=== PATIENT | female | born 1995 | race Two or more races ===

== ENCOUNTER 2019-09-07 01:22 | Inpatient (IN) | payer OTHER ==
[2019-09-07] MEDS ORDERED: ELECTROLYTE-148 SOLN 500 ML IV ONE ×2 (03:00→04:00)
[2019-09-07 03:26] VITALS: BMI 24.5
[2019-09-07 03:28] LABS: BASO % 0.2 % (0-2.0); EOS % 0.5 % (0-4.5); HEMATOCRIT 33.9 % (32.4-45.2); HEMOGLOBIN 11.5 GM/dL (10.7-15.3); LYMPH % 21.8 % (8-40); MCH 29.2 pg (25.7-33.7); MEAN CELL VOLUME 85.9 fl (80-96); MEAN PLT VOLUME 9.9 fl (7.5-11.1); MONO % 12.2 % (3.8-10.2); NEUT % 65.3 % (42.8-82.8); PLATELET COUNT 194 K/MM3 (134-434); RBC 3.95 M/mm3 (3.60-5.2)
[2019-09-07 03:40] LABS: INR 0.87 (0.83-1.09); PROTHROMBIN TIME (PATIENT) 10.3 SEC (9.7-13.0)
[2019-09-07 03:46] LABS: BLOOD UREA NITROGEN 7.1 mg/dL (7-18); CALCIUM 9.1 mg/dL (8.5-10.1); CREATININE 0.4 mg/dL (0.55-1.3); POTASSIUM 4.2 mmol/L (3.5-5.1)
[2019-09-07] MEDS ORDERED: FENTANYL/BUPIVACAINE/NS/PF - PCEA - 50 ML DISP.SYRIN EP ONE ×4 (03:58→16:28)
[2019-09-07] MEDS ORDERED: LIDO 2%/EPI 1:200000 PRESRVFRE (20 ML SDVIAL) ONE ×2 (04:02→22:54)
[2019-09-07] MEDS ORDERED: NALOXONE HCL 0.4 MG/ML VIAL IVPUSH PRN (04:33)
[2019-09-07] MEDS ORDERED: FENTANYL/BUPIVACAINE/NS/PF - PCEA - 50 ML DISP.SYRIN EP SCH (04:45)
[2019-09-07] MEDS: FENTANYL/BUPIVACAINE/NS/PF - PCEA - 50 ML DISP.SYRIN EP SCH (05:44)
[2019-09-07] MEDS ORDERED: OXYTOCIN 30 UNITS in 0.9% NS 30 UNIT/500 ML INFUS.BAG IVPB ONE (13:12)
[2019-09-07] MEDS ORDERED: OXYTOCIN 30 UNITS in 0.9% NS 30 UNIT/500 ML INFUS.BAG IVPB SCH (13:15)
--- NOTE | 2019-09-07 13:42 | HP ---
Past Medical History - Primary Care Physician PCP:: Shane Clarke - Admission Chief Complaint: 23yo P0 with at EGA 39w4d admitted with SROM and spontaneous labor. History of Present Illness: Pt with uncomplicated PNC. She was a late PNC tranfer to [facility] from [facility], and part of PNC at [id number] in [place]. Prior records show essentially normal values, negative 2-hr GCT, normal US 's. She presented with SROM at 1am and was noted to be is spontaneous labor and 2 cm dilated at 2:30 pm. The patient was given an epidural for pain mgt and progressed to 5 cm dilation by 8:30 am. At 13:03 her cervical dilation is still 5 cm. The tracing has been consistently Category I. History Source: Patient, Medical Record Limitations to Obtaining History: No Limitations - Past Medical History CARPET BINDER: No: Alzheimer's, CVA, Dementia, Migraine, Multiple Sclerosis, Peripheral Neuropathy, Parkinson's, Seizure, Syncope, TIA, Vertigo, Other Cardiovascular: No: AFIB, Aneurysm, Aortic Insufficiency, Aortic Stenosis, CAD, CHF, Deep Vein Thrombosis, HTN, Hyperlipdemia, NC, Mitral Insufficiency, Mitral Stenosis, Murmur, Pulmonary Hypertension, Other Pulmonary: No: Asthma, Bronchitis, Cancer, COPD, O2 Dependent, Pneumonia, Previously Intubated, Pulmonary Embolus, Pulmonary Fibrosis, Sleep Apnea, Other Gastrointestinal: No: Ascites, Cancer, Constipation, Crohn's Disease, Diverticulitis, Diverticulosis, Esophageal Varices, Gastritis, GERD, GI Bleed, Hemorrhoids, Hiatal Hernia, Inflamatory Bowel Disease, Irritable Bowel Disease, Pancreatitis, Peptic Ulcer Disease, Ulcerative Colitis, Other Hepatobiliary: No: Cirrhosis, Cholelithiasis, Cholecystitis, Choledocholithiasis , Hepatitis A, Hepatitis B, Hepatitis C, Other Renal/: No: Renal Failure, Renal Inusuff, BPH, Cancer, Hematuria, Hemodialysis , Neurogenic Bladder, Renal Calculi, UTI, Other Reproductive: No: Ectopic , Endometriosis, Fibroids, PID, Polycystic Ovary Syndrome, Postmenopausal, Other ...: 1 ...Para: 0 ...Term: 0 ...: 0 ...Spon : 0 ...Induced : 0 ...Multiple Gestation: 0 ...LMP: 12/05/18 ... Weeks Gestation by Dates: 39.4 ...EDC by Dates: 09/10/19 Heme/Onc: No: Anemia, B12 Deficiency, Bleeding Disorder, Cancer, Current Chemotherapy, Current Radiation Therapy, Hemochromatosis, Hypercoaguable State, Myeloproliferative Synd, Sickle Cell Disease, Sickle Cell Trait, Thrombocytopenia, Other Infectious Disease: No: AIDS, C-Diff, Herpes Zoster, HIV, MRSA, STD's, Tuberculosis, VREF, Other Psych: No: Addictions, Anxiety, Bipolar, Depression, Panic, Psychosis, Schizophrenia, Other Musculoskeletal: No: Bursitis, Chronic low back pain, Hemiparesis, Hemiplegia, Osteoarthritis, Paraplegia, Other Rheumatology: No: Fibromyalgia, Gout, Lupus, Rheumatoid Arthritis, Sarcoidosis, Vasculitis, Other Endocrine: No: Keyshawn's Disease, Allan's Disease, Diabetes Insipidus, Diabetes Mellitus, Hyperparathyroidism, Hyperthyroidism, Hypothyroidism, Osteopenia, SIADH, Other Dermatology: No: Basal Cell, Cellulitis, Eczema, Melanoma, Psoriasis, Squamous Cell, Other - Past Surgical History Past Surgical History: Yes: None Hx Myomectomy: No Hx Transabdominal Cerclage: No - Smoking History Smoking history: Never smoked Have you smoked in the past 12 months: No - Alcohol/Substance Use Hx Alcohol Use: No History of Substance Use: reports: None - Social History Usual Living Arrangement: Yes: With Spouse, With Parent Do you think of yourself as: Straight/Heterosexual ADL: Independent History of Recent Travel: No Home Medications - Allergies Allergies/Adverse Reactions: Allergies Allergy/AdvReac Type Severity Reaction Status Date / Time No Known Allergies Allergy Verified 09/07/19 03:32 - Home Medications Home Medications: Ambulatory Orders RX: Vitamins (Sjr) - 1 tab PO DAILY 09/07/19 Family Medical History Family History: Unremarkable Review of Systems - Review of Systems Constitutional: reports: No Symptoms Eyes: reports: No Symptoms HENT: reports: No Symptoms Neck: reports: No Symptoms Cardiovascular: reports: No Symptoms Respiratory: reports: No Symptoms Gastrointestinal: reports: No Symptoms Genitourinary: reports: No Symptoms Breasts: reports: No Symptoms Reported Musculoskeletal: reports: No Symptoms Integumentary: reports: No Symptoms Neurological: reports: No Symptoms Endocrine: reports: No Symptoms Hematology/Lymphatic: reports: No Symptoms Psychiatric: reports: No Symptoms Pain Intensity: 0 Physical Exam - Maternity Vital Signs: Vital Signs Temperature 97.9 F 09/07/19 12:00 Pulse Rate 97 H 09/07/19 12:30 Respiratory Rate 18 09/07/19 12:30 Blood Pressure 104/53 L 09/07/19 12:30 O2 Sat by Pulse Oximetry (%) 100 09/07/19 12:30 Constitutional: Yes: Well Nourished, No Distress, Calm Eyes: Yes: WNL, Conjunctiva Clear, EOM Intact HENT: Yes: WNL, Atraumatic, Normocephalic Neck: Yes: WNL, Supple, Trachea Midline Cardiovascular: Yes: WNL, Regular Rate and Rhythm Lungs: Clear to auscultation, Normal air movement - Abdominal Exam/OB Fundal Height: 39 Number of Fetuses: Single Presentation: Vertex Contractions: Yes Regularity: Irregular (q3-4 min) Intensity: Unaware Monitor Mode: External Heart Rate (range): 130 Heart Rate Location: Midline Category: I Accelerations: Uniform Decelerations: None - Vaginal Exam/OB Vaginal Bleediing: No Speculum Exam: No Dilatation (cm): 5 Effacement (%): 90 Amniotic Membrane Status: Leaking Nitrazine Test: Positive Amniotic Fluid: Yes: Clear Presentation: Vertex/Position Station: -1 (Adequate gynecoid pelvimetry) - Physical Exam Musculoskeletal: Yes: WNL Extremities: Yes: WNL Edema: No Integumentary: Yes: WNL Deep Tendon Reflex Grade: Normal +2 ...Motor Strength: WNL Psychiatric: Yes: WNL, Alert, Oriented - Labs Lab Results: CBC, BMP 09/07/19 03:00 09/07/19 03:00 Hemorrhage Risk Assessment - Risk Factors Medium Risk Factors: Yes: None High Risk Factors: Yes: None Risk Score: 1 Risk Level: Medium Risk Imaging - Results Ultrasound: Report Reviewed Assessment/Plan 23yo P0 with at EGA 39w4d admitted with SROM and spontaneous labor. She was noted to be 2 cm dilated at 2:30 pm. The patient was given an epidural for pain mgt and progressed to 5 cm dilation by 8:30 am. At 13:03 her cervical dilation is still 5 cm. The tracing has been consistently Category I. At this point arrest of dilation was diagnosed. We discussed tx options and I advised augmenting ctx's with pitocin. Risks, benefits, alternatives of pitocin were explained. The pt requested to proceed. Plan to monitor course.
[2019-09-07] MEDS ORDERED: ELECTROLYTE-148 SOLN 1,000 ML IV SCH (13:45)
[2019-09-07] MEDS ORDERED: ONDANSETRON 4 MG/2 ML VIAL ONE (17:22)
--- NOTE | 2019-09-07 17:25 | PN ---
Ante-Partal Exam - Subjective Subjective: Pt without complaints. Exam done at 16:20. Vital Signs: Vital Signs Temperature 98.1 F 09/07/19 17:00 Pulse Rate 87 09/07/19 17:00 Respiratory Rate 18 09/07/19 17:00 Blood Pressure 92/55 L 09/07/19 17:00 O2 Sat by Pulse Oximetry (%) 100 09/07/19 17:00 Bleeding: No Headache: No Visual changes: No Right upper quadrant pain: No Pain (scale 1-10): 0 - Contractions Contractions: Yes Regularity: Regular Intensity: Unaware Monitor Mode: External - Exam during Labor Heart Rate: 135 Variability: Moderate Heart Rate Location: Midline Category: I Monitor Accelerations: Present Monitor Decelerations: None Exam: Vaginal Dilatation (cm): 7 Effacement (%): 90 Amniotic Membrane Status: Leaking Amniotic Fluid: Clear Presentation: Vertex Station: 0 - Intrapartum Hemorrhage Risk Medium Risk Factors: None High Risk Factors: None Risk Score: 0 Risk Level: Low Risk - Assessment/Plan Assessment/Plan: 23 yo P0 with spont labor and arrest of dilation undergoing labor augmentation. The pt w/o complaints. The fetus with Category I tracing. labr progressing in active phase. The exam showed adequate pelvimetry with NO cervical edema or caput. No evidence of infx. Plan to monitor labor and continue pitocin.
[2019-09-07] MEDS ORDERED: ONDANSETRON 4 MG/2 ML VIAL IVPB ONE (17:27)
--- NOTE | 2019-09-07 19:08 | PN ---
Ante-Partal Exam - Subjective Subjective: Pt is c/o pelvic pressure. Vital Signs: Vital Signs Temperature 98.1 F 09/07/19 18:00 Pulse Rate 102 H 09/07/19 18:45 Respiratory Rate 18 09/07/19 18:45 Blood Pressure 93/75 09/07/19 18:45 O2 Sat by Pulse Oximetry (%) 100 09/07/19 18:45 Bleeding: No Headache: No Visual changes: No Right upper quadrant pain: No Pain (scale 1-10): 4 - Contractions Contractions: Yes Regularity: Irregular Intensity: Moderate Monitor Mode: External - Exam during Labor Heart Rate: 140 Variability: Moderate Heart Rate Location: Midline Category: I Monitor Accelerations: Present Monitor Decelerations: None Exam: Vaginal Dilatation (cm): 9.5 Effacement (%): 100 Amniotic Membrane Status: Leaking Amniotic Fluid: Clear Presentation: Vertex Station: +1 - Intrapartum Hemorrhage Risk Medium Risk Factors: None High Risk Factors: None Risk Score: 0 Risk Level: Low Risk - Assessment/Plan Assessment/Plan: 23yo P0 with active labor. Fetus with Category I tracing and requires no intervention. Plan to continue to monitor labor. Anticipate .
--- NOTE | 2019-09-07 20:05 | PN ---
Ante-Partal Exam - Subjective Subjective: Pt is c/o pelvic pressure, some pain in the right side. Vital Signs: Vital Signs Temperature 98.1 F 09/07/19 18:00 Pulse Rate 102 H 09/07/19 18:45 Respiratory Rate 18 09/07/19 18:45 Blood Pressure 93/75 09/07/19 18:45 O2 Sat by Pulse Oximetry (%) 100 09/07/19 18:45 Bleeding: No Headache: No Visual changes: No Right upper quadrant pain: No Pain (scale 1-10): 5 - Contractions Contractions: Yes Regularity: Regular Intensity: Moderate Monitor Mode: External - Exam during Labor Heart Rate: 140 Variability: Moderate Heart Rate Location: Midline Category: I Monitor Accelerations: Present Monitor Decelerations: None Exam: Vaginal Dilatation (cm): 10 Effacement (%): 100 Amniotic Membrane Status: Leaking Amniotic Fluid: Clear Meconium Staining: Light Presentation: Vertex Station: +1 - Intrapartum Hemorrhage Risk Medium Risk Factors: None High Risk Factors: None Risk Score: 0 Risk Level: Low Risk - Assessment/Plan Assessment/Plan: Pt will start pushing in second stage but she is not feeling contractions yet. Fetus with category I tracing. Plan to decrease the epidural rate and await the return of ability to push with ctx's. Anticipate .
[2019-09-07] MEDS ORDERED: LIDOCAINE HCL 1% PRESERVATIVE FREE - 30ML VIAL ONE (20:43)
[2019-09-07] MEDS ORDERED: OXYTOCIN 20 UNITS in 0.9% NS 20 UNIT/1,000 ML INFUS.BAG IV ONE (23:09)
[2019-09-07] MEDS ORDERED: BUPIVACAINE HCL/PF 0.25% (2.5MG/ML) 10 ML VIAL ONE (23:11)
[2019-09-07] MEDS ORDERED: SODIUM CHLORIDE 0.9% P/F 10 ML VIAL IJ ONE (23:14)
[2019-09-07] MEDS ORDERED: PROMETHAZINE HCL 25 MG/1 ML VIAL ONE (23:50)
[2019-09-07] MEDS ORDERED: BUTORPHANOL TARTRATE 1 MG/ML VIAL ONE (23:50)
--- NOTE | 2019-09-08 00:25 | PROC ---
Obstetrical Vaccum Device - Doc. Following Use of Vaccum Device Indications for use: Tachycardia, Maternal Exhaustion Risks and Benefits Explained: Yes Consent on Chart: Yes Dilation (0-10): 10 Station: 3 Molding: Yes Position: OP Caput: No Proper placement of cup confirmed: Yes Number of pulls: 2 Number of pop-offs: 1 Duration of time cup on head (min): 2 Maximum pressure attained: 45 (cm Hg) Total time cup near/at maximum pressure (min): 1 Reduction of pressure between contractions: Yes Outcome: Successful delivery Appearance of head on delivery: Normal Gang Ripsaw Operator present during vacuum extraction: Yes Gang Ripsaw Operator & nursery staff notified of vacuum extraction: Yes
[2019-09-08] MEDS ORDERED: BUTORPHANOL TARTRATE 1 MG/ML VIAL IVPB ONE (01:00)
[2019-09-08] MEDS ORDERED: PROMETHAZINE HCL 25 MG/1 ML VIAL IVPB ONE (01:15)
[2019-09-08] MEDS ORDERED: BENZOCAINE 20% 57 GM BOTTLE TP PRN (01:52)
[2019-09-08] MEDS ORDERED: BENZOCAINE 28 GM HEMORRHOIDAL OINTMENT TP PRN (01:52)
[2019-09-08] MEDS ORDERED: WITCH HAZEL 50% (TUCKS) 40 PAD/JAR PAD TP PRN (01:52)
[2019-09-08] MEDS ORDERED: METHYLERGONOVINE MALEATE 0.2 MG/1 ML AMP IM PRN (01:52)
[2019-09-08] MEDS ORDERED: BISACODYL 10 MG SUPP.RECT RC PRN (01:52)
[2019-09-08] MEDS ORDERED: OXYTOCIN 20 UNITS in 0.9% NS 20 UNIT/1,000 ML INFUS.BAG IV SCH (02:00)
[2019-09-08] MEDS: CLINDAMYCIN 600MG PREMIX IVPB 600 MG/50 ML BAG IVPB SCH ×4 (02:20→21:37)
--- NOTE | 2019-09-08 02:21 | PN ---
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 Pt and family were extensively counselled re: delivery options. We discussed the options of C/S vs. attempted VAVD. The OR was prepared, the anesthesia and neonatology were in attendance. However, the pt and her family expressed strong desire for atempted VAVD. The risks, benefits, alternatives of C/S vs VAVD, and failed VAVD were explained. The consent form was reviewed and signed. Uncomplicated VAVD was successfully performed with 2 pulls and one pop-off. A 4th degree vaginal/perineal laceration was diagnosed after delivery. 1.The layers of anorectal mucosa, rectovaginal fascia, internal and external anal sphincters were identidied, tagged. 2. Anal mucosa was repaired using a 3-0 Vicryl suture with good approximation and hemostasis 3. Internal anal sphincter and eden-anal fascia were repaired using a 3-0 Vicryl suture 4. External anal sphincter was repaired using a 2-0 Vicryl suture 5. The perineal body was repaired using a 2-0 Vicryl suture 6.Vaginal mucosa was repaired using a 2-0 chromic suture 7. Perineal skin was closed using a 2-0 chromic suture 8. Meticulous repair was done and Good hemostasis was noted. Pt tolerated well.
[2019-09-08] MEDS ORDERED: CLINDAMYCIN PHOSPHATE 600 MG/4 ML VIAL ONE (02:26)
[2019-09-08] MEDS: GENTAMICIN INJECTION 250 MG in SODIUM CHLORIDE 250 ML IVPB SCH (03:05)
[2019-09-08 03:47] LABS: HEMATOCRIT 27.4 % (32.4-45.2); HEMOGLOBIN 9.1 GM/dL (10.7-15.3); MCH 28.7 pg (25.7-33.7); MCHC 33.3 g/dl (32.0-36.0); MEAN CELL VOLUME 86.3 fl (80-96); MEAN PLT VOLUME 9.2 fl (7.5-11.1); PLATELET COUNT 170 K/MM3 (134-434); RBC 3.17 M/mm3 (3.60-5.2); RDW 12.9 % (11.6-15.6); WHITE BLOOD COUNT 24.3 K/mm3 (4.0-10.0)
[2019-09-08] MEDS: IBUPROFEN 600 MG TABLET (FP) PO PRN ×4 (05:43→22:08)
[2019-09-08] MEDS: ACETAMINOPHEN 325 MG TABLET (FP) PO PRN ×2 (05:43→18:09)
[2019-09-08] MEDS: DOCUSATE SODIUM 100 MG CAPSULE (FP) PO PRN ×2 (08:52→21:36)
[2019-09-08] MEDS: PRENATAL VITAMINS W/ FOLIC ACID TABLET (FP) PO SCH (10:14)
[2019-09-08] MEDS: oxyCODONE HCL 5 MG TABLET PO PRN ×3 (10:15→22:09)
[2019-09-09] MEDS: GENTAMICIN INJECTION 250 MG in SODIUM CHLORIDE 250 ML IVPB SCH (02:05)
[2019-09-09] MEDS: CLINDAMYCIN 600MG PREMIX IVPB 600 MG/50 ML BAG IVPB SCH ×3 (03:14→15:00)
[2019-09-09] MEDS: ACETAMINOPHEN 325 MG TABLET (FP) PO PRN ×4 (03:30→21:45)
[2019-09-09] MEDS: IBUPROFEN 600 MG TABLET (FP) PO PRN ×4 (03:30→21:46)
[2019-09-09 07:31] LABS: BASO % 0.2 % (0-2.0); EOS % 0.9 % (0-4.5); HEMATOCRIT 22.4 % (32.4-45.2); HEMOGLOBIN 7.5 GM/dL (10.7-15.3); LYMPH % 16.6 % (8-40); MCH 28.8 pg (25.7-33.7); MCHC 33.4 g/dl (32.0-36.0); MEAN CELL VOLUME 86.4 fl (80-96); MEAN PLT VOLUME 9.3 fl (7.5-11.1); MONO % 9.1 % (3.8-10.2); NEUT % 73.2 % (42.8-82.8); PLATELET COUNT 164 K/MM3 (134-434); RBC 2.59 M/mm3 (3.60-5.2); RDW 13.3 % (11.6-15.6); WHITE BLOOD COUNT 17.3 K/mm3 (4.0-10.0)
[2019-09-09] MEDS: DOCUSATE SODIUM 100 MG CAPSULE (FP) PO PRN ×2 (10:20→21:52)
[2019-09-09] MEDS: PRENATAL VITAMINS W/ FOLIC ACID TABLET (FP) PO SCH (10:20)
--- NOTE | 2019-09-09 12:47 | PN ---
Post Progress Note - Subjective Subjective: Feel well but mildly fatigued. No fever or chills. Pain is well controlled. No dizziness, SOB, or AMEZQUITA. Reports tolerating oral intake without nausea or vomiting. Ambulating without dizziness. Denies fevers or chills. Pain well controlled with oral pain medication. Pumping/breast feeding without issue. Passing flatus. Post Day: 2 Type of Delivery: Vacuum Assist Vag Del Vital Signs: Vital Signs Temperature 97.8 F 09/09/19 10:00 Pulse Rate 88 09/09/19 10:00 Respiratory Rate 20 09/09/19 10:00 Blood Pressure 90/57 L 09/09/19 10:00 O2 Sat by Pulse Oximetry (%) 100 09/08/19 01:05 Breast Exam: Yes: Soft Uterus: Yes: Fundus Firm, Fundus below umbilicus, Non-tender Abdomen/GI: Yes: Abdomen soft, Passing flatus, Tolerating PO Lochia: Yes: Rubra Lochia, amount: Small Extremities: Yes: Calves non-tender, Edema (trace) Perineum: Yes: Laceration (repair is intact) Activity: Ambulating - Labs Labs: CBC WBC 17.3 K/mm3 (4.0-10.0) H 09/09/19 07:10 RBC 2.59 M/mm3 (3.60-5.2) L 09/09/19 07:10 Hgb 7.5 GM/dL (10.7-15.3) L 09/09/19 07:10 Hct 22.4 % (32.4-45.2) L D 09/09/19 07:10 MCV 86.4 fl (80-96) 09/09/19 07:10 MCH 28.8 pg (25.7-33.7) 09/09/19 07:10 MCHC 33.4 g/dl (32.0-36.0) 09/09/19 07:10 RDW 13.3 % (11.6-15.6) 09/09/19 07:10 Plt Count 164 K/MM3 (134-434) 09/09/19 07:10 MPV 9.3 fl (7.5-11.1) 09/09/19 07:10 Absolute Neuts (auto) 12.6 K/mm3 (1.5-8.0) H 09/09/19 07:10 Neutrophils % 73.2 % (42.8-82.8) 09/09/19 07:10 Lymphocytes % 16.6 % (8-40) D 09/09/19 07:10 Monocytes % 9.1 % (3.8-10.2) 09/09/19 07:10 Eosinophils % 0.9 % (0-4.5) 09/09/19 07:10 Basophils % 0.2 % (0-2.0) 09/09/19 07:10 Nucleated RBC % 0 % (0-0) 09/09/19 07:10 Assessment/Plan 23yo P1 s/p VAVD, doing well stable. Anemia noted. Plan to consult Heme re: possible IV iron prior to discharge home. Instructions and precautions for anemia reviewed with pt. care instructions reviewed. Continue routine care. Ambulation encouraged Discharge instruction reviewed.
--- NOTE | 2019-09-09 12:51 | DS ---
Physical Exam-UTILITIES GROUND WORKER Vital Signs: Vital Signs Temperature 97.8 F 09/09/19 10:00 Pulse Rate 88 09/09/19 10:00 Respiratory Rate 20 09/09/19 10:00 Blood Pressure 90/57 L 09/09/19 10:00 O2 Sat by Pulse Oximetry (%) 100 09/08/19 01:05 Constitutional: Yes: Well Nourished, No Distress, Calm Eyes: Yes: WNL, Conjunctiva Clear, EOM Intact HENT: Yes: WNL, Atraumatic, Normocephalic Neck: Yes: WNL, Supple, Trachea Midline Cardiovascular: Yes: WNL, Regular Rate and Rhythm Respiratory: Yes: WNL, Regular, CTA Bilaterally Gastrointestinal: Yes: WNL, Normal Bowel Sounds, Soft ...Rectal Exam: Yes: Deferred Renal/: Yes: WNL Pelvis: Yes: WNL Internal Exam Deferred: Yes ....Post : Yes: Uterus firm, Uterus non-tender, Slight lochia rubra Breast(s): Yes: WNL Musculoskeletal: Yes: WNL Extremities: Yes: WNL Edema: Yes Edema: LLE: Trace, RLE: Trace Integumentary: Yes: WNL Neurological: Yes: WNL, Alert, Oriented ...Motor Strength: WNL Psychiatric: Yes: WNL, Alert, Oriented Labs: CBC, BMP 09/09/19 07:10 09/07/19 03:00 Delivery - Delivery Vaginal Delivery: No Problems, Vacuum Assist Type of Anesthesia: Epidural Episiotomy/Laceration: 4th Degree EBL (cc): 400 Delivery, Single - Stages of Labor Date 1st Stage Initiatied: 09/07/19 Time 1st Stage Initiated: 04:00 Date 2nd Stage Initiated: 09/07/19 Time 2nd Stage Initiated: 20:10 Date of Delivery: 09/07/19 Time of Delivery: 23:05 Time Placenta Delivered: 23:40 Placenta: Yes: Spontaneous, Normal Configuration - 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 Pt and family were extensively counselled re: delivery options. We discussed the options of C/S vs. attempted VAVD. The OR was prepared, the anesthesia and neonatology were in attendance. However, the pt and her family expressed strong desire for atempted VAVD. The risks, benefits, alternatives of C/S vs VAVD, and failed VAVD were explained. The consent form was reviewed and signed. Uncomplicated VAVD was successfully performed with 2 pulls and one pop-off. A 4th degree vaginal/perineal laceration was diagnosed after delivery. 1.The layers of anorectal mucosa, rectovaginal fascia, internal and external anal sphincters were identidied, tagged. 2. Anal mucosa was repaired using a 3-0 Vicryl suture with good approximation and hemostasis 3. Internal anal sphincter and eden-anal fascia were repaired using a 3-0 Vicryl suture 4. External anal sphincter was repaired using a 2-0 Vicryl suture 5. The perineal body was repaired using a 2-0 Vicryl suture 6.Vaginal mucosa was repaired using a 2-0 chromic suture 7. Perineal skin was closed using a 2-0 chromic suture 8. Meticulous repair was done and Good hemostasis was noted. Pt tolerated well. Discharge Summary Problems reviewed: Yes Reason For Visit: ADMIT LABOR Labor at term Procedures: Principal: VAVD Other Procedures: Repair of 4th degree OB laceration Hospital Course: Normal recovery Anemia Health Concerns: Anemia due to acute blood loss Plan of Treatment: IV iron infusion before discharge home. Goals: recovery. Improved anemia Condition: Good - Instructions Diet, Activity, Other Instructions: Physical activity Resume your normal everyday activity as tolerated no heavy lifting or exercise until seen by your surgeon. You may walk unlimited constantine of and climb stairs. You may resume driving the car when you feel safe and comfortable behind the wheel. No sexual activity as instructed. Wound care If you have a bandage, leave it on, and keep dry for 48-72 hours. After that time discard the outer bandage. If they are tapes on the skin under the out of bandage leave them in place. They will peel off in the next 7 to 10 days. Do Not Peel them off. You may shower the day after surgery. If there are tapes present on the skin, you may shower over them. Diet There are no dietary restrictions. Eat healthy, high-fiber foods. Drink 6 to 8 glasses of liquid each day. This will assist in keeping your bowels are regular. Pain management You may take Tylenol or acetaminophen or Ibuprofen (for example, Motrin, Advil etc.) from my pain prescription medication is ordered should be taken as prescribed for moderate to severe pain. Call MD for any of the following: Severe pain not relieved by medication Fever of 101 or higher Excessive bleeding or drainage on dressing Inability to urinate Referrals: Jose Flores MD [Staff Physician] - Disposition: HOME - Home Medications Comprehensive Discharge Medication List: Ambulatory Orders Vitamins (Sjr) - 1 tab PO DAILY 09/07/19
[2019-09-09] MEDS ORDERED: SENNOSIDES/DOCUSATE COMBO (SENNA PLUS) TABLET (UD) PO PRN (22:00)
[2019-09-10] MEDS: ACETAMINOPHEN 325 MG TABLET (FP) PO PRN ×2 (05:06→16:09)
[2019-09-10] MEDS: IBUPROFEN 600 MG TABLET (FP) PO PRN ×2 (05:07→16:09)
[2019-09-10] MEDS: FENTANYL/BUPIVACAINE/NS/PF - PCEA - 50 ML DISP.SYRIN EP SCH ×2 (07:03→07:13)
[2019-09-10 07:58] LABS: BASO % 0.4 % (0-2.0); EOS % 0.8 % (0-4.5); HEMATOCRIT 26.8 % (32.4-45.2); HEMOGLOBIN 9.1 GM/dL (10.7-15.3); LYMPH % 20.5 % (8-40); MCH 29.3 pg (25.7-33.7); MEAN CELL VOLUME 86.1 fl (80-96); MEAN PLT VOLUME 9.5 fl (7.5-11.1); MONO % 6.1 % (3.8-10.2); NEUT % 72.2 % (42.8-82.8); PLATELET COUNT 215 K/MM3 (134-434); RBC 3.11 M/mm3 (3.60-5.2); RDW 13.2 % (11.6-15.6); WHITE BLOOD COUNT 10.5 K/mm3 (4.0-10.0)
[2019-09-10] MEDS: PRENATAL VITAMINS W/ FOLIC ACID TABLET (FP) PO SCH (10:03)
[2019-09-10] MEDS: DOCUSATE SODIUM 100 MG CAPSULE (FP) PO PRN (10:59)
--- NOTE | 2019-09-10 12:26 | PN ---
Progress Note (short form) - Note Progress Note: ppd 4 , no dizziness, no excess vaginal bleeding, had BM with no difficulty CBC, BMP 09/10/19 07:20 09/07/19 03:00 Last Vital Signs Temp Pulse Resp BP Pulse Ox 97.9 F 98 H 18 96/64 100 09/10/19 09:00 09/10/19 09:00 09/10/19 09:00 09/10/19 09:00 09/08/19 01:05 abdomen soft, non tender , no cva uterus firm , non tender lochia mild no calf tenderness plan ambulate , cbc improved , asymptomatic Hem. consult pending
--- NOTE | 2019-09-10 12:45 | CONSULT ---
Consultation: REQUESTING PROVIDER: CONSULT SERVICE: Hematology/Oncology Resident HISTORY OF PRESENT ILLNESS: 23yo F with apparent history of iron deficiency anemia during who originally presented for labor with normal vaginal with Stage IV vaginal tearing. Pt reports receiving iron supplementations orally prior to her delivery, however this was discontinued 2/2 to constipation. Pt reports some lightheadedness and generalized weakness. PMHx: Iron deficiency PSHx: None SoHx: Tobacco - None Alcohol - None Drugs - None First child, lives with , no environmental factors REVIEW OF SYSTEMS: as per HPI PHYSICAL EXAMINATION Vital Signs - 24 hr 09/09/19 09/10/19 09/10/19 22:00 05:08 09:00 Temperature 98.3 F 97.4 F L 97.9 F Pulse Rate 107 H 77 98 H Respiratory 18 18 18 Rate Blood Pressure 96/57 L 97/54 L 96/64 GENERAL: Awake, alert, and fully oriented, in no acute distress. HEENT: NC/AT, EOMI, JIM, sclera anicteric, no conjunctival pallor, MMM NECK: No JVD LUNGS: CTA bilaterally. No wheezes, and no crackles. No accessory muscle use. HEART: RRR, normal S1 and S2 without murmur ABDOMEN: Soft, NT/ND, normoactive bowel sounds, no guarding. No hepatomegaly EXTREMITIES: 2+ DP pulses, warm, well-perfused. No calf tenderness. No peripheral edema. PSYCHIATRIC: Cooperative. Good eye contact. Appropriate mood and affect. SKIN: Warm, dry, no rashes or lesions noted. Laboratory Results - last 24 hr 09/10/19 07:20 WBC 10.5 H RBC 3.11 L Hgb 9.1 L Hct 26.8 L D MCV 86.1 MCH 29.3 MCHC 34.0 RDW 13.2 Plt Count 215 D MPV 9.5 Absolute Neuts (auto) 7.6 Neutrophils % 72.2 Lymphocytes % 20.5 D Monocytes % 6.1 Eosinophils % 0.8 Basophils % 0.4 Nucleated RBC % 0 Active Medications Generic Name Dose Route Start Last Admin Trade Name Freq PRN Reason Stop Dose Admin Acetaminophen 650 mg 09/08/19 01:52 09/10/19 05:06 Tylenol - PO 650 mg Q3H PRN Administration PAIN 4-6 Benzocaine 1 spray 09/08/19 01:52 09/08/19 08:51 Americaine 20% Atkins - TP 1 spray PRN PRN Administration PAIN Benzocaine 1 applic 09/08/19 01:52 Americaine Ointment - TP PRN PRN PAIN Bisacodyl 10 mg 09/08/19 01:52 Dulcolax Suppository - RC PRN PRN CONSTIPATION Docusate Sodium 100 mg 09/08/19 02:08 09/10/19 10:59 Colace - PO 100 mg BID PRN Administration CONSTIPATION Oxytocin/Sodium Chloride 30 unit in 500 mls @ 1 mls/hr 09/07/19 13:15 15:30 Normal Saline+30 Units Oxytocin IVPB 0.3 unit/hr TITR LORRAINE 5 mls/hr Titration Protocol 0.06 UNIT/HR Parenteral Electrolytes 1,000 mls @ 125 mls/hr 09/07/19 13:45 09/07/19 12:00 Plasma-Lyte 148 - IV 125 mls/hr ASDIR LORRAINE Administration Oxytocin/Sodium Chloride 20 unit in 1,000 mls @ 125 mls/hr 09/08/19 02:00 23:40 Normal Saline+20 Units Oxytocin - IV 125 mls/hr ASDIR LORRAINE Administration Ibuprofen 600 mg 09/08/19 01:52 09/10/19 05:07 Motrin - PO 600 mg Q4H PRN Administration PAIN 1-3 Methylergonovine Maleate 0.2 mg 09/08/19 01:52 Methergine Injection - IM Q4H PRN EXCESSIVE BLEEDING (L&D) Naloxone HCl 0.4 mg 09/07/19 04:33 Narcan - IVPUSH PRN PRN Sedation Multivit/Folic Acid/Iron 1 tab 09/08/19 10:00 09/10/19 10:03 Vitamins ([facility]) - PO 1 tab DAILY LORRAINE Administration Senna/Docusate Sodium 2 tablet 09/09/19 22:00 Pericolace - PO HS PRN CONSTIPATION Witch Idalia/Glycerin 1 pad 09/08/19 01:52 Tucks Pads - TP PRN PRN PAIN Laboratory Tests 09/10/19 12:52 Iron 44 L TIBC 369 Iron Saturation 11 L Unsaturated IBC 325 H Ferritin 54.9 ASSESSMENT/PLAN: Normocytic anemia Vaginal --Likely multifactorial due to previous iron deficiency anemia and blood loss from Stage IV tearing --Iron studies with low iron saturation indicating iron deficiency --Venofer 200mg x1 ordered after lab draws given symptomatic nature --Iron deficit at minimum 911mg --Will need 4 more doses that can be administered on outpatient basis with follow-up CBC afterwards Case to be discussed Jimmie Li DO - IM PGY-3 Visit type - Emergency Visit Emergency Visit: No - New Patient This patient is new to me today: Yes Date on this admission: 09/10/19 - Critical Care Critical Care patient: No ATTENDING PHYSICIAN STATEMENT I saw and evaluated the patient. I reviewed the resident's note and discussed the case with the resident. I agree with the resident's findings and plan as documented. SUBJECTIVE: OBJECTIVE: ASSESSMENT AND PLAN:
[2019-09-10] MEDS ORDERED: IRON SUCROSE INJECTION 200 MG in SODIUM CHLORIDE 90 ML IVPB ONE (12:49)
[2019-09-10 17:52] VITALS: BP 113/62; PULSE 96; TEMP 97.9
== END 2019-09-10 18:46 | disposition home or self-care (01) | DRG 560 ==
LOC: UNDOADMIN 01:22 → J3WN 01:22 → JLDR 01:22 → J3W 09-08 02:36
PROVIDERS: ADMIT Obstetrics & Gynecology; ATTEND Obstetrics & Gynecology
PROC: 0DQP0ZZ Repair Rectum, Open Approach (ICD-10-PCS; principal; 2019-09-08)
PROC: 10D07Z6 Extraction of Products of Conception, Vacuum, Via Natural or Artificial Opening (ICD-10-PCS; 2019-09-08)
DX: O75.81 Maternal exhaustion complicating labor and delivery (principal); O76 Abnormality in fetal heart rate and rhythm complicating labor and delivery; O70.3 Fourth degree perineal laceration during delivery; O66.5 Attempted application of vacuum extractor and forceps; O99.03 Anemia complicating the puerperium; Z3A.39 39 weeks gestation of pregnancy; Z37.0 Single live birth
CPT/HCPCS: 36415; 36600; 59409; 80048; 82728; 82803; 83540; 83550; 85025; 85027; 85610; 85730; 86593; 86850; 86900; 86901; 87389; J1756